=== PATIENT | male | born 1990 | race Two or more races ===

== ENCOUNTER 2019-04-18 07:26 | Day surgery (SDC) | payer OTHER ==
[~2019-04-18 07:26] MED LIST: BUPIVACAINE HCL/PF 0.5% (5 MG/ML) 30 ML VIAL IJ ONE; DEXAMETHASONE SOD PHOSPHATE 4 MG/1 ML VIAL NR ONE
--- NOTE | 2019-04-18 08:04 | HP ---
HISTORY OF PRESENT ILLNESS Patient is a 29 year old male with a past medical history of appendectomy (10 years ago). He is currently on no home medications (takes an occasional protein drink when he works out) who presents to the [facility] today for a scheduled Hammertoe repair of 4&5 digit, right foot. Patient states he has pain on right foot for over one year, pain 10/10 that worsens with ambulation. Otherwise denies any chest pain, denies any other symptoms. PCP: none currently, has not seen one in over a year ASU course was notable for: (1) see below (2) (3) Recent travel: none recent Family History: not , lives with father. has one child 1 year old boy. father: healthy age 50s. mother: healthy age 50s, no medical issues with either parent. 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[employer] Smoking: none Alcohol: occasionally, last drank 2 days ago Drugs: denies REVIEW OF SYSTEMS CONSTITUTIONAL: Absent: fever, chills, diaphoresis, generalized weakness, malaise, loss of appetite, weight change HEENT: Absent: rhinorrhea, nasal congestion, throat pain, throat swelling, difficulty swallowing, mouth swelling, ear pain, eye pain, visual changes CARDIOVASCULAR: Absent: chest pain, syncope, palpitations, irregular heart rate, lightheadedness , peripheral edema RESPIRATORY: Absent: cough, shortness of breath, dyspnea with exertion, orthopnea, wheezing, stridor, hemoptysis GASTROINTESTINAL: Absent: abdominal pain, abdominal distension, nausea, vomiting, diarrhea, constipation, melena, hematochezia GENITOURINARY: Absent: dysuria, frequency, urgency, hesitancy, hematuria, flank pain, genital pain MUSCULOSKELETAL: Absent: myalgia, arthralgia, +joint swelling right foot, back pain, neck pain SKIN: Absent: rash, itching, pallor HEMATOLOGIC/IMMUNOLOGIC: Absent: easy bleeding, easy bruising, lymphadenopathy, frequent infections ENDOCRINE: Absent: unexplained weight gain, unexplained weight loss, heat intolerance, cold intolerance NEUROLOGIC: Absent: headache, focal weakness or paresthesias, dizziness, unsteady gait, seizure, mental status changes, bladder or bowel incontinence PSYCHIATRIC: Absent: anxiety, + depression on no medications (depression over erectile dysfunction), suicidal or homicidal ideation, hallucinations. PHYSICAL EXAMINATION: GENERAL: Awake, alert, and fully oriented, in no acute distress. HEAD: Normal with no signs of trauma. EYES: Pupils equal, round and reactive to light, extraocular movements intact, sclera anicteric, conjunctiva clear. No lid lag. EARS, NOSE, THROAT: Ears normal, nares patent, oropharynx clear without exudates. Moist mucous membranes. NECK: Normal range of motion, supple without lymphadenopathy, JVD, or masses. LUNGS: Breath sounds equal, clear to auscultation bilaterally. No wheezes HEART: Regular rate and rhythm, normal S1 and S2 without murmur, rub or gallop. ABDOMEN: Soft, nontender, not distended, normoactive bowel sounds, old surgical scars, healed MUSCULOSKELETAL: Normal range of motion at all joints. No bony deformities or tenderness. No CVA tenderness. UPPER EXTREMITIES: 2+ pulses, warm, well-perfused. No cyanosis. No clubbing. No peripheral edema. LOWER EXTREMITIES: right foot pain, for surgical repair NEUROLOGICAL: Normal speech. Normal gait. PSYCHIATRIC: Cooperative. Good eye contact. Appropriate mood and affect. SKIN: Warm, dry, normal turgor, no rashes or lesions noted, normal capillary refill. ASSESSMENT/PLAN: Surgery Hammertoe 4&5 digits/Hammertoe repair - right foot surgical pre op/post op care Labs reviewed (in chart) Foot xray done today 04/18/19, no fracture or foreign object seen Patient encouraged to seek a PCP for a physical exam. He lives in the [place] and states he will follow up.
[2019-04-18 08:27] VITALS: BMI 31.4
[2019-04-18] MEDS ORDERED: LIDOCAINE HCL 1%, 10 MG/ML (20ML VIAL) ONE (09:51)
[2019-04-18] MEDS ORDERED: DEXAMETHASONE SOD PHOSPHATE 4 MG/1 ML VIAL ONE (09:51)
[2019-04-18] MEDS ORDERED: PROPOFOL 20 ML ONE ×2 (09:52)
[2019-04-18] MEDS ORDERED: LIDOCAINE HCL/PF 2% SDV 5ML VIAL ONE (09:52)
[2019-04-18] MEDS ORDERED: ceFAZolin SODIUM 1 GM VIAL ONE (09:52)
[2019-04-18] MEDS ORDERED: MIDAZOLAM HCL 2 MG/2 ML SINGLE DOSE VIAL ONE ×2 (09:53)
[2019-04-18] MEDS ORDERED: ceFAZolin SODIUM 1 GM VIAL IVPB ONE (10:10)
[2019-04-18] MEDS ORDERED: LIDOCAINE HCL 1%, 10 MG/ML (20ML VIAL) PNB ONE (10:28)
[2019-04-18] MEDS ORDERED: BUPIVACAINE HCL/PF 0.5% (5 MG/ML) 30 ML VIAL IJ ONE ×2 (10:28→11:00)
[2019-04-18] MEDS ORDERED: BACITRACIN 50,000 UNITS VIAL TP ONE (10:30)
[2019-04-18] MEDS ORDERED: KETOROLAC TROMETHAMINE 30 MG/1 ML VIAL ONE (10:30)
[2019-04-18] MEDS ORDERED: DEXAMETHASONE SOD PHOSPHATE 4 MG/1 ML VIAL NR ONE (11:00)
[2019-04-18] MEDS ORDERED: ONDANSETRON 4 MG/2 ML VIAL IVPUSH PRN (11:18)
[2019-04-18] MEDS ORDERED: ACETAMINOPHEN 500 MG TABLET (FP) PO PRN (11:18)
[2019-04-18] MEDS ORDERED: LACTATED RINGERS SOLUTION 1,000 ML IV SCH (11:30)
[2019-04-18] MEDS ORDERED: ACETAMINOPHEN INJECTION 100 ML IVPB ONE (11:50)
[2019-04-18 14:41] VITALS: BP 131/88; PULSE 83; TEMP 97.8
--- NOTE | 2019-04-22 15:35 | PATH ---
Surgical Pathology Report Patient Name: KIERA NICHOLSON Med. Rec. #: [id number] /Age/Gender: 1990 (Age: 29) / M Account: [id number] Location: [facility] SURGICAL Taken: 04/18/2019 Received: 04/18/2019 Reported: 04/22/2019 Physicians: Jeanette Doyle DPM Specimen(s) Received BONE AND SKIN RIGHT FOOT 4,5TH DIGIT Clinical History Right foot hammertoes fourth, fifth digit Final Diagnosis BONE AND SKIN, FOOT, RIGHT, 4TH AND 5TH DIGIT, HAMMER TOE CORRECTION: BONE WITH FATTY MARROW AND DENSE FIBROCONNECTIVE TISSUE.SKIN WITHOUT SIGNIFICANT PATHOLOGIC FINDINGS. Electronically Signed Anju Abbott M.D. Gross Description Received in formalin labeled "bone and skin from right foot," are 2 erwin-yellow portions of bone measuring 0.9 x 0.6 x 0.5 cm and 1.0 x 0.7 x 0.5 cm. Also received within the same container are 2 erwin, unremarkable, unoriented skin shaves measuring 1.5 x 0.5 cm and 1.7 x 0.4 cm. Net Developer Software Engineer C sections are submitted in one cassette, following decalcification. 04/21/2019 [facility]04/21/2019
--- NOTE | 2019-04-23 14:09 | OP ---
DATE OF OPERATION: 04/18/2019 SURGEON: Jeanette Doyle DPM DIELECTRIC PRESS OPERATOR: Guido Morrell DPM PREOPERATIVE DIAGNOSIS: Painful Right foot 4th digit hammertoe, 5th digit rotational hammertoe deformity with exostosis. POSTOPERATIVE DIAGNOSIS: Painful Right foot 4th digit hammertoe, 5th digit rotational hammertoe deformity with exostosis. PROCEDURE: Right foot 4th digit arthroplasty of PIPJ, 5th digit derotational hammertoe correction arthroplasty PIPJ, heloma molle removal, and exostosis removal medial distal phalanx ANESTHESIA: MAC with local. HEMOSTASIS: Ankle tourniquet. ESTIMATED BLOOD LOSS: Less than 5 mL. OPERATIVE REPORT: After proper verbal and written consent was obtained, the patient was brought in to the operating room and placed in the supine position on the operating room table. After adequate IV sedation was administered by the anesthesia team, a local infiltrative block was administered to right foot. Utilizing a 1: 1 mix of 1% lidocaine plain and 0.5% Marcaine plain in a toe block formation, circumferentially around the 4th and 5th digit with a total of 10 mL utilized. The right foot was then prepped and draped in the usual sterile technique. The ankle of the surgical foot was well padded using an adequate amount of Webril and tourniquet was then placed prior to the prep and drape. Exsanguination of right foot with an Esmarch bandage was subsequently performed. Thereafter, the ankle tourniquet was inflated to 250 mmHg. Attention was then directed to the dorsal aspect of the right foot 4th and 5th digit, where two converging elliptical incision 2 cm in length were created on both toes and a wedge of skin was removed from both and sent down to pathology. The incision was then deepened through blunt and sharp dissection on both toes. The extensor tendon was then revealed and a subsequent transverse cut was made using a 15 blade and the adhered tendon was carefully reflected off the head of the proximal phalanx exposing the distal 1/3 of the proximal phalanx. Thereafter, the collateral ligaments were subsequently released from the proximal phalanx head on both. Distal and proximal ends of the extensor tendon were identified and preserved for future anastomosis. Care was taken throughout dissection to avoid damage to the adjacent neurovascular structures. The head of the proximal phalanx was then removed by utilizing a sagittal saw. A transverse cut was made through the distal 1/3 portion of the proximal phalanx head of both. The cut was angulated on the 5th toe head of the proximal phalanx distal medial to proximal lateral. Attention was then directed to the dorsal aspect of the right foot 5th digit, where an oblique thin elliptical incision was drawn using a marking pen in the direction starting distal medial to proximal lateral, thus allowing for a derotation of the hammertoe deformity when closing. Attention was then turned to the heloma molle on the medial aspect of right 5th medial distal aspect. The lesion was excised using a 15 blade and a small bur was used to remove bony exostosis of distal medial phalanx. The surgical sites were then copiously irrigated with antibiotic infused normal saline. The extensor tendons of digits 4 and 5 were reapproximated using 3-0 Vicryl. The skin was reapproximated using 5-0 nylon suture. The 5th toe was derotated via skin closure. Post operative injection was put into surgical sites. The incision sites were dressed with Betadine-soaked Adaptic, and covered with sterile compressive dressing consisting of 4 x 4's, Armand and bri bandage. The pneumatic ankle tourniquet was subsequently deflated and a prompt hyperemic response was noted to all 5 digits of the right foot. No strikethrough bleeding was noted through the dressing thereafter. The patient tolerated the procedure and anesthesia well. The patient left the operating room with the anesthesia team, transferred to the PACU recovery room in good condition with vital signs stable and neurovascular status intact. RONEN Izquierdo/[id number]
== END 2019-04-18 13:55 | disposition home or self-care (01) ==
LOC: JASU-SURG 07:26
PROVIDERS: ATTEND Podiatrist Foot Surgery
PROC: 0SRP0JZ Replacement of Right Toe Phalangeal Joint with Synthetic Substitute, Open Approach (ICD-10-PCS; principal; 2019-04-18 08:30)
DX: M20.41 Other hammer toe(s) (acquired), right foot (principal)
CPT/HCPCS: 73630-TC-RT-FY; 88304-TC; 88311-TC; 94760; 97116-GP; J0131